=== PATIENT | female | born 1970 | race Caucasian/White ===

== ENCOUNTER 2022-02-13 10:09 | Emergency (ER) | payer OTHER, SELFPAY ==
[2022-02-13 10:15] VITALS: BP 128/82; PULSE 95; RESP 16; TEMP 37.4; O2SAT 100
--- NOTE | 2022-02-13 10:18 | ED.URI ---
HPI - URI/Sore Throat General Chief Complaint: Skin/Abscess/Foreign Body Stated Complaint: Chills,Body Aches,Headache,Rash Time Seen by Provider: 02/13/22 10:10 Source: patient and RN notes reviewed History of Present Illness HPI Narrative: Patient is a 51-year-old female who presents the urgent care with her spouse with complaints of body aches, chills, rash and headache. Patient states that 2 weeks ago she got bit on the right hip and was treated with a shot of Rocephin and Bactrim for cellulitis on February 03. Patient states she is now concerned with the worsening rash to the thighs as well as the body aches and chills. Patient states that the body aches and chills started approximately 4 days ago and she has been taking Tylenol and ibuprofen. Patient's main concern is that the bite was due to a tick and she is now symptomatic for either Lyme disease or other illness. No other acute complaints. Patient denies any shortness of breath or chest pain. No acute distress noted. Patient aware of the plan of care. Some parts of this dictation were generated by voice recognition software and may contain typographical and/or grammatical inaccuracies. Related Data Home Medications Medication Instructions Recorded Confirmed docusate sodium 100 mg capsule 100 mg PO DAILY 02/13/22 02/13/22 levothyroxine 25 mcg tablet 25 mcg PO DAILY 02/13/22 02/13/22 (Synthroid) Allergies Allergy/AdvReac Type Severity Reaction Status Date / Time No Known Allergies Allergy Verified 02/13/22 10:11 Review of Systems Review of Systems: CONSTITUTIONAL: Reports of chills and sweats with fatigue EYES: Denies visual changes, redness, or discharge. ENT: Denies rhinorrhea, congestion, sore throat, or otalgia. CARDIOVASCULAR: Denies chest pain, palpitations, or edema. RESPIRATORY: Denies cough or dyspnea. GASTROINTESTINAL: Denies abdominal pain, nausea, vomiting, or diarrhea. GENITOURINARY: Denies dysuria or hematuria. SKIN: Reports of a rash status post bite to the right hip MUSCULOSKELETAL: Denies back pain, joint pain, or myalgia. NEUROLOGIC: Denies headache, numbness. Reports of body aches All other systems reviewed are negative, except as documented in HPI. [facility] Social History Social History Smoking status: Never smoker Alcohol intake: never Comments At the time of my signature, I reviewed and agree with the nursing past medical, surgical, social, and family history. There is no relevant family history pertinent to the patient complaint. Exam Narrative: GENERAL: This is a well-nourished, well-developed patient. Flat affect, appears anxious HEAD: normocephalic, atraumatic. EYES: PERRL. Sclera clear/white. Vision is grossly intact. EARS: External ears normal, auditory canals clear and without drainage, TMs normal without perforation. Hearing grossly intact. NOSE: External nose normal with no obvious nasal discharge, nares without redness, no rhinorrhea. THROAT: Mucous membranes moist, posterior pharynx clear. NECK: Neck supple CARDIOVASCULAR: Regular rate and rhythm without murmurs, gallops, or rubs. RESPIRATORY: Clear to auscultation. Breath sounds equal bilaterally. No wheezes, rales, or rhonchi. SKIN: 4 x 14 cm area of ecchymotic blanching erythemic with petechiae to the right hip. Scattered nonraised dermatitis to bilateral upper thighs warm, intact with no suspicious lesions or rash, good texture and turgor. NEURO: awake, alert, and oriented to person, place and time. There were no obvious focal neurologic abnormalities. EXTREMITIES: No clubbing, cyanosis, or edema. Course Course Level of Care: Express Care Visit Vital Signs Vital signs: Vital Signs Temperature 99.3 F 02/13/22 10:15 Pulse Rate 95 02/13/22 10:15 Respiratory Rate 16 02/13/22 10:15 Blood Pressure 128/82 02/13/22 10:15 Pulse Oximetry 100 02/13/22 10:15 Oxygen Delivery Room Air 02/13/22 10:15 Temperature 99.3 F 02/13/22 10:15 Pulse
== END 2022-02-13 10:50 | disposition home or self-care (01) ==
PROVIDERS: Emergency Provider Nurse Practitioner Family
DX: B34.9 Viral infection, unspecified (principal); Z20.822 Contact with and (suspected) exposure to COVID-19; E03.9 Hypothyroidism, unspecified
CPT/HCPCS: 87426; 99213; C9803; G0463

== ENCOUNTER 2023-01-17 10:26 | Emergency (ER) | payer OTHER, SELFPAY ==
[2023-01-17 10:45] VITALS: BP 110/71; PULSE 84; RESP 16; TEMP 36.7; O2SAT 100
--- NOTE | 2023-01-17 10:47 | ED.URI ---
HPI - URI/Sore Throat General Chief Complaint: Upper Respiratory Infection Stated Complaint: sorethroat Time Seen by Provider: 01/17/23 10:47 Source: patient Mode of arrival: ambulatory Limitations: no limitations History of Present Illness HPI Narrative: 52-year-old female presents with complaint of sore throat, body aches, chills, fatigue for 2 days. Patient reports recent exposure to strep throat. Patient states she is leaving for [facility] tomorrow for a 10 day vacation. Does not want to have to get medical treatment while out of the country. Is concerned she has strep throat. All systems reviewed and negative except as noted above. Related Data Home Medications Medication Instructions Recorded Confirmed levothyroxine 25 mcg tablet 25 mcg PO DAILY 02/13/22 01/17/23 (Synthroid) Allergies Allergy/AdvReac Type Severity Reaction Status Date / Time No Known Allergies Allergy Verified 01/17/23 10:45 Review of Systems Review of Systems: CONSTITUTIONAL: Denies fever Reports chills, or sweats. reports fatigue. EYES: Denies visual changes, redness, or discharge. ENT: Denies rhinorrhea, congestion . Reports sore throat. Denies otalgia. CARDIOVASCULAR: Denies chest pain, palpitations, or edema. RESPIRATORY: Denies cough or dyspnea. GASTROINTESTINAL: Denies abdominal pain, nausea, vomiting, or diarrhea. GENITOURINARY: Denies dysuria or hematuria. SKIN: Denies rash or itching. MUSCULOSKELETAL: Denies back pain, joint pain, or myalgia. NEUROLOGIC: Denies headache, numbness, or weakness. PSYCHIATRIC: Denies anxiety or depression. All other systems reviewed are negative, except as documented in HPI. [facility] Social History Social History Smoking status: Never smoker Alcohol intake: never Comments At time of signature, agree with nursing past medical, surgical, social and family history. There is no relevant family history pertinent to the presenting complaint. Exam Narrative: GENERAL: This is a well-nourished, well-developed patient, in no apparent distress. HEAD: normocephalic, atraumatic. EYES: PERRL. Sclera clear/white. Vision is grossly intact. EARS: External ears normal, auditory canals clear and without drainage, TMs normal without perforation. Hearing grossly intact. NOSE: External nose normal with no obvious nasal discharge, nares without redness, no rhinorrhea. THROAT: Mucous membranes moist, Erythematous and swollen without tonsillar exudates. NECK: Neck supple, non-tender without lymphadenopathy, masses or thyromegaly. CARDIOVASCULAR: Regular rate and rhythm without murmurs, gallops, or rubs. RESPIRATORY: Clear to auscultation. Breath sounds equal bilaterally. No wheezes, rales, or rhonchi. SKIN: warm, Dry, intact with no suspicious lesions or rash, good texture and turgor. NEURO: awake, alert, and oriented to person, place and time. There were no obvious focal neurologic abnormalities. EXTREMITIES: No joint tenderness, effusion, or edema noted. Course Course Level of Care: Express Care Visit Vital Signs Vital signs: Vital Signs Temperature 36.7 C 01/17/23 10:45 Pulse Rate 84 01/17/23 10:45 Respiratory Rate 16 01/17/23 10:45 Blood Pressure 110/71 01/17/23 10:45 Pulse Oximetry 100 01/17/23 10:45 Oxygen Delivery Room Air 01/17/23 10:45 Temperature 36.7 C 01/17/23 10:45 Pulse Rate 84 01/17/23 10:45 Respiratory Rate 16 01/17/23 10:45 Blood Pressure 110/71 01/17/23 10:45 Pulse Oximetry 100 01/17/23 10:45 Oxygen Delivery Room Air 01/17/23 10:45 Reviewed MDM - URI/Sore Throat MDM Narrative Medical decision making narrative: Patient is aware of diagnosis, understands and agrees to treatment plan. Anticipatory guidance given. Patient agrees to follow-up as directed and is aware of reasons to seek care at the emergency department. Portions of this record may have been created with voice recognition software negative rapid St
== END 2023-01-17 11:04 | disposition home or self-care (01) ==
PROVIDERS: Emergency Provider Nurse Practitioner Family
DX: J02.9 Acute pharyngitis, unspecified (principal); E03.9 Hypothyroidism, unspecified
CPT/HCPCS: 87081; 87880; 99213; G0463

== ENCOUNTER 2024-09-28 12:19 | Emergency (ER) | payer OTHER, SELFPAY ==
[2024-09-28 12:28] VITALS: BP 126/67; PULSE 89; RESP 18; TEMP 37.2; O2SAT 100
--- NOTE | 2024-09-28 12:44 | ED.URI ---
HPI - URI/Sore Throat General Chief Complaint: Upper Respiratory Infection Stated Complaint: SINUS INFECTION History of Present Illness HPI Narrative: 54-year-old presenting complaint of nasal congestion and postnasal drainage for about 2 weeks. Endorses headache and sinus pressure hearing is muffled, and sore throat from the drainage. Taking Mucinex. Denies shortness of breath, wheezing nausea vomiting fevers lethargy. Related Data Home Medications ?Medication ?Instructions ?Recorded ?Confirmed ?Last Taken ?Type levothyroxine 25 mcg tablet 25 mcg PO DAILY 02/13/22 01/17/23 Unknown History (Synthroid) Allergies Allergy/AdvReac Type Severity Reaction Status Date / Time No Known Allergies Allergy Verified 09/28/24 12:36 Review of Systems Review of Systems: per [facility] Social History Social History Smoking status: Never smoker Alcohol intake: never Exam Narrative: GENERAL: mildly Ill-appearing, no acute distress. EYES: conjunctivae clear ENT: Mucous membranes moist. Nasal congestion noted. TM pearly gautam with normal light reflex bilaterally; no tragal tenderness. No drooling, no hoarseness, no trismus, uvula midline. No tripod positioning, hot potato voice, or soft palate swelling. NECK: Supple. No lymphadenopathy CHEST: Clear to auscultation, breath sounds equal. No respiratory distress, speaks in full sentences. HEART: Regular rate and rhythm. No murmur heard. SKIN: Warm, dry, no rash. NEURO: Alert and oriented x3. Course Course Emergency Course: Patient is aware of diagnosis, understands and agrees to treatment plan. Anticipatory guidance given. Patient agrees to follow-up as directed and is aware of reasons to seek care at the emergency department. Portions of this record may have been created with voice recognition software Level of Care: Express Care Visit Vital Signs Vital signs: Vital Signs Temperature 99.0 F 09/28/24 12:28 Pulse Rate 89 09/28/24 12:28 Respiratory Rate 18 09/28/24 12:28 Blood Pressure 126/67 09/28/24 12:28 Pulse Oximetry 100 09/28/24 12:28 Oxygen Delivery Room Air 09/28/24 12:28 Temperature 99.0 F 09/28/24 12:28 Pulse Rate 89 09/28/24 12:28 Respiratory Rate 18 09/28/24 12:28 Blood Pressure 126/67 09/28/24 12:28 Pulse Oximetry 100 09/28/24 12:28 Oxygen Delivery Room Air 09/28/24 12:28 MDM - URI/Sore Throat MDM Narrative Medical decision making narrative: Discussed physical exam findings consistent with sinusitis.Advise supportive treatments. Patient is appropriate for outpatient treatment and follow-up. Differential Diagnosis Differential diagnosis: Likely upper respiratory infection, sinusitis, viral infection and pharyngitis Discharge Plan Discharge Clinical Impression: Sinusitis Patient Disposition: Home, Self-Care Condition: Stable Instructions: Antibiotic Form, Rhinosinusitis (ED) Additional Instructions: Take antibiotic as directed Recommendations Flonase spray and Zyrtec (or Claritin/Yulissa) Tylenol 1000mg every 8 hours as needed for pain Symptomatic treatment includes: rest, fluids, and increase humidity of the air at home. Follow up with your primary care provider in 1 week. Go to the ER for worsening symptoms or concerns. Patient Language: Thai Prescriptions: New amoxicillin-pot clavulanate 875-125 mg tablet 1 tablet PO Q12H 7 Days Qty: 14 0RF No Action levothyroxine [Synthroid] 25 mcg tablet 25 mcg PO DAILY amoxicillin 500 mg tablet 500 mg PO Q12H 10 Days Qty: 20 0RF Follow-up/Referrals: [place], [Primary Care Provider] - Time of Disposition: 12:45
== END 2024-09-28 12:50 | disposition home or self-care (01) ==
PROVIDERS: Emergency Provider Nurse Practitioner Family
DX: J01.90 Acute sinusitis, unspecified (principal)
CPT/HCPCS: 99213; G0463